=== PATIENT | male | born 2005 | race Caucasian/White ===

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

== ENCOUNTER 2025-01-14 08:50 | Emergency (ER) | payer OTHER, SELFPAY ==
[2025-01-14 09:02] VITALS: BP 119/74; PULSE 94; RESP 20; TEMP 36.7; O2SAT 96
[2025-01-14] MEDS: Lidocaine 1% Multi-Dose 50 ML VIAL (09:13)
--- NOTE | 2025-01-14 09:34 | W.ED.GENAD ---
Discharge Plan Disposition Patient Disposition: Home Condition: Good Discharge Details Clinical Impression: Avulsion of finger tip Primary Care Provider: Billy Cerda ED Provider: Praveena Regalado Home Meds and New Rx's Prescriptions: New oxycodone 5 mg capsule 5 mg PO TID PRN (Reason: pain) Qty: 7 0RF Discharge Instructions Instructions: Taking care of cuts, scrapes, and puncture wounds Additional Instructions: As we discussed, the tip of your finger was completely cut off. This did not involve the bone or ligaments. More so, the pulp of your finger. Please keep the area clean, dry, covered. Keep the current dressing on for the next 48 hours. After that, you may remove and reapply bandage followed by finger splint. Elevation can help with the throbbing and swelling discomfort. You may continue with Tylenol and/or ibuprofen as needed for discomfort. Please take as directed on the packaging. You may augment that with the oxycodone as prescribed please do not drive or drink alcohol while using this medication. Please keep this in a safe place. Please follow-up with primary care next week for reevaluation of the wound. This wound should heal from the inside out. If you develop any new or worsening symptoms, symptoms of infection, including redness, warmth, drainage, increased pain, fever/chills, please return to the emergency department once again. Stand Alone Forms: Work Release Referrals: Billy Cerda MD [Primary Care Provider, Pediatrics Medical] Discharge Data Discharge Date/Time-TO BE ENTERED AT DEPARTURE: 01/14/25 12:40 HPI General Date/Time Provider Initiated Documentation: 01/14/25 09:07. Limitations to Documentation: no limitations. Information obtained by: patient, family (father) and RN notes reviewed. History of Present Illness 19 year old M presents to the emergency department with the chief complaint of laceration right thumb, described as severe, with intensity rated at 10. and is localized to the right and upper extremity. Patient reports no radiation. Patient started experiencing this minute(s) and it has been constant. Immobilization improves symptom(s), Movement worsens symptoms . Patient notes no other symptoms.. Patient did receive the following treatments prior to arrival, none Related Data Home Medications ?Medication ?Instructions ?Recorded ?Confirmed oxycodone 5 mg capsule 5 mg PO TID PRN pain #7 caps 01/14/25 Previous Rx's ?Medication ?Instructions ?Recorded oxycodone 5 mg capsule 5 mg PO TID PRN pain #7 caps 01/14/25 Allergies Allergy/AdvReac Type Severity Reaction Status Date / Time pollen extracts Allergy Mild runny Verified 01/14/25 09:03 nose, congestion Salt AdvReac Unknown Swelling/Ed Uncoded 01/14/25 09:03 devang General Stated Complaint: Laceration ANGEL: 3 Review of Systems Constitutional Constitutional: Reports as per HPI Musculoskeletal Musculoskeletal: Reports as per HPI Integumentary/Breasts Skin/Breast: Reports as per HPI Neurologic Neurologic: Reports as per HPI, Denies sensory deficit and Denies paresthesias Exam Const General: cooperative, healthy appearing, comfortable, no acute distress and well developed Nutritional Appearance: average body habitus and well nourished Orientation: alert and awake Resp Effort & Inspection: normal respiratory effort, able to speak in complete sentences and no respiratory distress Cardio Rate: regular rate Rhythm: regular rhythm Skin Trauma: laceration (as below) Neuro General: patient alert and patient awake Cognition: normal cognition Speech: speech normal Gait: normal gait Sensory Exam: no sensory deficits noted Extrem Hand/finger images:  1. Location of avulsed tissue. Patient has 2+ distal pulses. No joint involvement. Complete avulsion of the tissue, active bleeding is noted. No bone is visible, no ligamentous involvement. Avulsed area is about 1 cm in diameter. Course Vital Signs Vital signs: Vital Signs Temperature 36.7 C 01/14/25 09:02 Pulse 94 H 01/14/25 09:02 Respiratory Rate 20 01/14/25 09:02 Blood Pressure 119/74 01/14/25 09:02 Pulse Oximetry 96 01/14/25 09:02 Temperature 36.7 C 01/14/25 09:02 Pulse 94 H 01/14/25 09:02 Respiratory Rate 20 01/14/25 09:02 Blood Pressure 119/74 01/14/25 09:02 Pulse Oximetry 96 01/14/25 09:02 Medical Decision Making Patient is a pleasant [id number] 19-year-old male, otherwise healthy, presenting today with chief complaint of right thumb laceration sustained at work. States that he was working with an industrial razor when he accidentally cut his finger. This is immediately dressed and pressure applied by coworker. Unknown tetanus. Patient denies other injury at the time of the incident. On exam, patient is very anxious and uncomfortable. Exam of the right upper extremity is significant for complete avulsion of the radial corner of the thumb, patient lost about 1.5 cm oval area of tissue that does cut horizontally across the distal aspect of the nail. Patient does have good amount of bleeding with vessels able to be visualized. The intact tissue has intact sensation. No reason to suspect a ligamentous injury or joint involvement. Patient I discussed with/benefits as well as expected procedural steps associated with a digital block. Was performed with 1% lidocaine plain. This did not give good anesthetic effect although patient continues to endorse some discomfort but hard to differentiate this from a large amount of anxiety as well. A tourniquet was then applied, cautery utilized on the visible vessels. Patient continued to have some oozing so after cauterization of the larger vessels involved, Surgicel was applied followed by pressure dressing. Based on location, low suspicion for bony involvement but as this is a potential, I did recommend an x-ray and at this point the patient would like to hold off as he reports that he is uninsured. We did discuss that this is likely a Workmen's Comp. claim but he reports he is not sure if this is actually going to go through. His father is on his way here and will discuss this further with him. Will give Tylenol, ibuprofen and 1 oxycodone to help with discomfort. Father at bedside, he has discussed with patient and has helped to encourage XR. Will also update tetanus. XR reviewed by radiologist: FINDINGS: BONES: Exam is limited by overlying gauze. No acute fracture is present. No bony destructive lesion is seen. JOINTS: No dislocation present. SOFT TISSUE: Distal soft tissue laceration. No gross evidence of foreign body. IMPRESSION: Soft tissue injury. No evidence of acute fracture. Discussed with patient. Bleeding remains under control. Bulky dressing in place. will send home with splint. Encouraged elevation. Advised on wound care. I did discuss with orthopedics, Dr Laboy, to ensure no need for grafting. He advised based on his age and health, likely to heal well without further intervention. Strict return precautions discussed, advised on sxs of infection. Ecouraged f/u with PCP for conitnued wound care and ensure wound healing. All of their quesitons and concerns were addressed. Work note given. PFSH All Active Problems (Updated 01/14/25 @ 12:08 by ASHA Webb) Avulsion of finger tip (Acute) Erythromelalgia (Chronic) bilateral hands; followed by rheumatology and awaiting cardiology eval at [facility] Myopia, unspecified eye (Acute 05/16/16) Pediatric body mass index (BMI) of greater than or equal to 95th percentile for age (Acute 05/17/17) Medical History (Updated 01/14/25 @ 12:08 by ASHA Webb) Syncope and collapse COVID-19 Wears glasses Family History Grandfather Heart disease MGF - [place] Hyperlipidemia MGF Grandmother Hyperlipidemia MGM Mental disorder PGM - anxiety & depression Father Mental disorder Depression/anxiety Other Essential hypertension Social History Smoking/Tobacco Use Status: Never Smoking risk assessment performed?: Yes Alcohol Intake: never Drug use: Never Substance use type: does not use Communication Needs: Corrective Lenses Education Level: high school Details: [employer] 12th grade Pets and animals: Yes (2 dogs, 1 cat) Pets and animals: cat(s) and dog(s) Current gender identity: male What type of physical activity do you participate in: other Details: Soccer, basketball,rock climbing Seatbelt use: always Helmet use: Yes Water heater temp set <120 deg: Yes Fire extinguisher in home: Yes Carbon monox detector in home: Yes Firearms in home: Yes Firearms unloaded and locked: Yes Additional Social history: Lives with mom primarily sees Dad
[2025-01-14] MEDS: Cellulose,Oxidized 2X3 PKT 1 EACH MC (09:35)
[2025-01-14] MEDS: Acetaminophen 500 MG TAB 1000 MG PO (09:39)
[2025-01-14] MEDS: Ibuprofen 600 MG TAB PO (09:39)
[2025-01-14] MEDS: oxyCODONE 5 MG TAB PO (09:39)
--- NOTE | 2025-01-14 10:00 | DI.RAD_ITS ---
Exam(s) XR THUMB RT EXAM: XR THUMB RT CLINICAL HISTORY: laceration, evaluate for bony involvement. TECHNIQUE: 2D digital imaging was performed. Three views. COMPARISON: No exams were available for comparison FINDINGS: BONES: Exam is limited by overlying gauze. No acute fracture is present. No bony destructive lesion is seen. JOINTS: No dislocation present. SOFT TISSUE: Distal soft tissue laceration. No gross evidence of foreign body. IMPRESSION: Soft tissue injury. No evidence of acute fracture. DATA REPOSITORY: RADIATION DOSE DELIVERED:
[2025-01-14] MEDS: Diph,Pertuss(Acell),Tet Vac/Pf 0.5 ML SYR IM (10:20)
[2025-01-14 12:38] VITALS: BP 104/61; PULSE 70; RESP 14; O2SAT 100
== END 2025-01-14 12:40 | disposition home or self-care (01) ==
PROVIDERS: Emergency Provider Physician Assistant; PCP Pediatrics
DX: S61.012A Laceration without foreign body of left thumb without damage to nail, initial encounter (principal); W26.8XXA Contact with other sharp object(s), not elsewhere classified, initial encounter; Y99.0 Civilian activity done for income or pay; Z23 Encounter for immunization
CPT/HCPCS: 99283 ×2; 12001; 90471; 90715; 73140; J2003